=== PATIENT | male | born 1960 | race Caucasian/White ===

== ENCOUNTER 2018-05-29 20:46 | Emergency (ER) | payer SELFPAY ==
[~2018-05-29] VITALS: Ht 167.6 cm; Wt 104.3 kg
--- NOTE | 2018-05-29 20:46 | NUR ---
57/M BIBA FOR LEFT KNEE PAIN S/P MECHANICAL FALL 2 DAYS AGO. +PMSC TO LLE, NO OBVIOUS DEFROMITIES NOTED. Addendum: 05/29/18 at 2101 by LISBET LEFT KNEE NOTED WITH MILD SWELLING, +TENDERNESS TO TOUCH. PMH: [id number]
--- NOTE | 2018-05-29 20:46 | NUR ---
PT ANN DELA CRUZ. TAKEN TO BED 11
--- NOTE | 2018-05-29 20:47 | NUR ---
Dr. Lainez evaluating patient at bedside.
[2018-05-29 20:48] VITALS: BP 157/102
[2018-05-29] MEDS ORDERED: IBUPROFEN 600 MG TAB PO ONE (20:55)
--- NOTE | 2018-05-29 20:57 | NUR ---
X-Ray at bedside.
[2018-05-29] MEDS ORDERED: IBUPROFEN 600 MG TAB ONE (21:10)
--- NOTE | 2018-05-29 21:16 | NUR ---
pt sleeping and would not cooperate. Unable to obtain urine sample at this time
[2018-05-29 21:42] LABS: BASOPHILS # (AUTO) 0.1 K/uL (0.00-0.22); BASOPHILS % (AUTO) 0.6 % (0.0-2.0); EOSINOPHILS # (AUTO) 0.3 K/uL (0-0.4); EOSINOPHILS % (AUTO) 3.7 % (0.0-4.0); HEMATOCRIT 30.2 % (36-52); HEMOGLOBIN 9.6 g/dL (12.0-18.0); LYMPHOCYTES # (AUTO) 2.9 K/uL (2.0-11.5); LYMPHOCYTES % (AUTO) 35.6 % (20.5-51.1); MEAN CORPUSCULAR HEMOGLOBIN 26 pg (27-31); MEAN CORPUSCULAR HGB CONC 32 g/dL (33-37); MEAN CORPUSCULAR VOLUME 82.1 fL (80-94); MONOCYTES # (AUTO) 0.8 K/uL (0.8-1.0); MONOCYTES % (AUTO) 9.2 % (1.7-9.3); NEUTROPHILS # (AUTO) 4.1 K/uL (1.8-7.7); NEUTROPHILS % (AUTO) 50.9 % (42.2-75.2); PLATELET COUNT (AUTO) 166 K/uL (140-450); RED BLOOD CELL COUNT(AUTO) 3.68 MIL/uL (4.20-6.10); RED CELL DISTRIBUTION WIDTH 24.5 % (11.6-13.7); WHITE BLOOD COUNT (AUTO) 8.2 K/uL (4.8-10.8)
[2018-05-29 21:51] LABS: ANION GAP 10.2 (8-16); CARBON DIOXIDE 26.7 mmol/L (21-32); CREATININE 0.9 mg/dL (0.7-1.3); POTASSIUM 3.9 mmol/L (3.5-5.1)
[2018-05-29] MEDS ORDERED: AMMONIA AROMATIC 1 INHL INH ONE (22:32)
[2018-05-29 22:55] VITALS: BP 131/74
== END 2018-05-29 22:49 | disposition home or self-care (01) ==
LOC: MED 20:46
DX: M25.462 Effusion, left knee (principal); E11.9 Type 2 diabetes mellitus without complications; F20.9 Schizophrenia, unspecified; Z59.0 Homelessness
CPT/HCPCS: 73502; 73562; 80048; 85025; 99285; Q0092